=== PATIENT | female | born 1965 | race African-American/Black ===

== ENCOUNTER 2017-07-25 18:13 | Emergency (ER) | payer MEDICARE, OTHER ==
[~2017-07-25] VITALS: Ht 165.1 cm; Wt 90.0 kg
[~2017-07-25 18:13] MED LIST: AMOX1TAB PO; CETI10CA PO; CLIN-72 PO; ELIM TOP; NPH10OT LEFT EAR; ONDA4TAB8 PO
[2017-07-25 18:17] VITALS: Ht 165.1 cm; Wt 90.0 kg
[2017-07-25] MEDS ORDERED: HYDR-3011 PO (20:01)
[2017-07-25] MEDS ORDERED: CEPH-443 PO (20:01)
[2017-07-25] MEDS ORDERED: ELIM TOP (20:01)
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
== END 2017-07-25 20:15 | disposition home or self-care (01) ==
LOC: FTE 18:13
DX: S00.462A Insect bite (nonvenomous) of left ear, initial encounter (principal); L08.9 Local infection of the skin and subcutaneous tissue, unspecified; F17.210 Nicotine dependence, cigarettes, uncomplicated; W57.XXXA Bitten or stung by nonvenomous insect and other nonvenomous arthropods, initial encounter
CPT/HCPCS: 99284

== ENCOUNTER 2017-10-14 20:58 | Emergency (ER) | payer MEDICARE ==
[~2017-10-14] VITALS: Ht 167.6 cm; Wt 100.0 kg
[~2017-10-14 20:58] MED LIST changes: +CEPH-443 PO; +HYDR-3011 PO; +LIDOCAINE 100 MG SYRINGE ONE; +PROPOFOL 200 MG INJ ONE; +ROCURONIUM 50 MG INJ ONE
[2017-10-14] MEDS ORDERED: ONDANSETRON 4 MG INJ IV STA (21:04)
[2017-10-14] MEDS ORDERED: morphine 4 MG/ML VIAL IV STA (21:04)
[2017-10-14] MEDS ORDERED: SOD CHLORIDE 0.9% 1,000 ML IV STA (21:04)
[2017-10-14 21:08] VITALS: Ht 167.6 cm; Wt 100.0 kg
[2017-10-14 21:30] LABS: BASOPHIL # 0.1 10^3/ul (0.0-0.1); BASOPHILS % 0.4 % (0.0-2.0); EOSINOPHILS % 0.2 % (0.0-7.0); HEMATOCRIT 42.1 % (37.0-47.0); HEMOGLOBIN 14.1 g/dl (12.0-16.0); LYMPHOCYTES # 1.3 10^3/ul (0.8-2.9); LYMPHOCYTES % 10.6 % (15.0-51.0); MEAN CORPUSCULAR HEMOGLOBIN 29.7 pg (29.0-33.0); MEAN CORPUSCULAR HGB CONC 33.5 g/dl (32.0-37.0); MEAN CORPUSCULAR VOLUME 88.6 fl (82.0-101.0); MEAN PLATELET VOLUME 10.8 fl (7.4-10.4); MONOCYTE # 0.7 10^3/ul (0.3-0.9); MONOCYTES % 5.8 % (0.0-11.0); NEUTROPHIL # 10.2 10^3/ul (1.6-7.5); NEUTROPHILS % 82.6 % (39.0-77.0); PLATELET COUNT 275 10^3/UL (140-415); RED BLOOD COUNT 4.75 10^6/ul (4.20-5.40); RED CELL DISTRIBUTION WIDTH 13.2 % (11.5-14.5); WHITE BLOOD COUNT 12.3 10^3/ul (4.8-10.8)
[2017-10-14] MEDS ORDERED: PROPOFOL 100 ML IV ONE (21:30)
[2017-10-14] MEDS ORDERED: LACTATED RINGER'S 1,000 ML IV ONE (21:30)
[2017-10-14 21:36] LABS: AADO2 Arterial 86.7 mmHg (7.0-24.0); Allen Test ACCEPTAB; Arterial Base Excess 2.2 mmol/L (-3.0-3); Arterial COHb 0.9 % (0.0-3.0); Arterial Fraction of Oxyhgb 98.4 % (93.0-99.0); Arterial HCO3 27.3 mmol/L (22.0-26.0); Arterial MetHb 0.3 % (0.0-1.5); Arterial Total Hemglobin 14.9 g/dl (12.0-18.0); MODE VENT - AC
[2017-10-14] MEDS ORDERED: MIDAZOLAM (DRIP) 50 mg/50 mL 50 ML IV STA (21:41)
[2017-10-14] MEDS ORDERED: FENTAnyl 50 MCG/ML VIAL ONE (21:41)
[2017-10-14] MEDS ORDERED: ETOMIDATE 20 MG INJ IV STA (21:41)
[2017-10-14] MEDS ORDERED: ROCURONIUM 50 MG INJ IV STA (21:41)
[2017-10-14] MEDS ORDERED: MIDAZOLAM (DRIP) 50 mg/50 mL 50 ML IV ONE (21:42)
[2017-10-14 21:44] LABS: INR 0.95; PROTIME 12.8 Sec (11.9-14.9)
[2017-10-14 21:48] LABS: ALANINE AMINOTRANSFERASE 30 IU/L (13-69); ALBUMIN 4.1 g/dl (3.3-4.9); ALBUMIN/GLOBULIN RATIO 0.85; ALKALINE PHOSPHATASE 130 IU/L (42-121); ANION GAP 16 (8-16); ASPARTATE AMINO TRANSFERASE 38 IU/L (15-46); BILIRUBIN,INDIRECT 0.5 mg/dl (0-1.1); BILIRUBIN,TOTAL 0.5 mg/dl (0.2-1.3); BLOOD UREA NITROGEN 22 mg/dl (7-20); CALCIUM 10.2 mg/dl (8.4-10.2); CARBON DIOXIDE 27 mmol/L (21-31); CHLORIDE 103 mmol/L (97-110); CREATININE 1.14 mg/dl (0.44-1.00); GLUCOSE 122 mg/dl (70-220); POTASSIUM 3.8 mmol/L (3.5-5.1); SODIUM 142 mmol/L (135-144); TOTAL PROTEIN 8.9 g/dl (6.1-8.1)
--- NOTE | 2017-10-14 21:58 | RADRPT ---
PROCEDURE: XR Chest. CLINICAL INDICATION: Abdominal Pain TECHNIQUE: Single frontal view of the chest was obtained COMPARISON: None FINDINGS: Endotracheal tube tip overlying the lower thoracic trachea just above the bill. The heart is normal in size. The lungs are clear with no focal consolidation, pleural effusion, or pneumothorax. The osseous structures are unremarkable. There is a zipper overlying the distal esophagus. IMPRESSION: 1. Endotracheal tube tip overlying the lower thoracic trachea just above the bill. 2. Zipper overlying the distal esophagus, likely external to the patient. Correlation with physical exam is suggested. If there is clinical suspicion for swallowed foreign body, a lateral radiograph may be obtained. 3. No focal consolidations. RPTAT:AAJJ Physician Dalila Date Time Electronically viewed and signed by Physician Dalila on 10/14/2017 21:58 QL/
[2017-10-14 22:00] LABS: TROPONIN-I < 0.012 ng/ml (0.00-0.12)
[2017-10-14] MEDS ORDERED: FENTAnyl 50 MCG/ML VIAL IV ONE (22:00)
[2017-10-14] MEDS ORDERED: FENTAnyl (DRIP) 1000 mcg/100mL 100 ML IV SCH (22:00)
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
[2017-10-15 00:07] LABS: ADD UMIC NO; UR ASCORBIC ACID NEGATIVE (NEGATIVE); UR BILIRUBIN (Dip) NEGATIVE (NEGATIVE); UR BLOOD (Dip) NEGATIVE (NEGATIVE); UR CLARITY CLEAR (CLEAR); UR COLOR YELLOW (YELLOW); UR GLUCOSE (Dip) NEGATIVE (NEGATIVE); UR KETONES (Dip) NEGATIVE (NEGATIVE); UR LEUKOCYTE ESTERASE (Dip) NEGATIVE Leu/ul (NEGATIVE); UR NITRITE (Dip) NEGATIVE (NEGATIVE); UR SPECIFIC GRAVITY (Dip) 1.019 (1.003-1.030); UR TOTAL PROTEIN (Dip) NEGATIVE (NEGATIVE); UR UROBILINOGEN (Dip) 1+ mg/dL (NEGATIVE)
[2017-10-15 02:11] VITALS: BP 120/94; PULSE 92; RESP 16; TEMP 95.7
== END 2017-10-15 02:35 | disposition short-term general hospital (02) ==
LOC: E/R 20:58
DX: T20.39XA Burn of third degree of multiple sites of head, face, and neck, initial encounter (principal); F17.210 Nicotine dependence, cigarettes, uncomplicated; T68.XXXA Hypothermia, initial encounter; N28.9 Disorder of kidney and ureter, unspecified; R40.2122 Coma scale, eyes open, to pain, at arrival to emergency department; R40.2212 Coma scale, best verbal response, none, at arrival to emergency department; R40.2312 Coma scale, best motor response, none, at arrival to emergency department; R06.02 Shortness of breath; X08.8XXA Exposure to other specified smoke, fire and flames, initial encounter; W93.8XXA Exposure to other excessive cold of man-made origin, initial encounter; Y92.9 Unspecified place or not applicable
CPT/HCPCS: 31500; 36415; 36600; 71010; 80053; 81003; 82375; 82803; 83605; 83690; 84484; 85025; 85610; 85730; 94002; 94003; 94770; 96374; 99291; J2001; J2250; J3010; J7030; J7120; 93005

== ENCOUNTER 2018-08-26 15:31 | Emergency (ER) | END 2018-08-26 16:36 | disposition home or self-care (01) ==

== ENCOUNTER 2018-09-05 15:54 | Emergency (ER) | END 2018-09-05 20:00 | disposition left against medical advice (07) ==

== ENCOUNTER 2018-10-02 12:52 | Emergency (ER) | END 2018-10-02 14:45 | disposition home or self-care (01) ==

== ENCOUNTER 2019-06-23 11:55 | Emergency (ER) | payer MEDICARE, MEDICAID ==
[~2019-06-23] VITALS: Wt 90.9 kg
[~2019-06-23 11:55] MED LIST changes: -AMOX1TAB PO; -CEPH-443 PO; +CEPH500C PO; -CETI10CA PO; -CLIN-72 PO; +CLOT30CR24 TOP; +DOXY-214 PO; -ELIM TOP; -HYDR-3011 PO; +IVER3TAB2 PO; -LIDOCAINE 100 MG SYRINGE ONE; +MUPI22OI2 TOP; -NPH10OT LEFT EAR; -ONDA4TAB8 PO; +PRED20TA PO; -PROPOFOL 200 MG INJ ONE; -ROCURONIUM 50 MG INJ ONE; +SULF1TAB31 PO
[2019-06-23 12:27] VITALS: BP 165/94; PULSE 100; RESP 16
[2019-06-23] MEDS: ACETAMINOPHEN 325 MG TAB PO ONE ×2 (13:18→13:24)
== END 2019-06-23 15:35 | disposition home or self-care (01) ==
LOC: FTE 11:55
DX: S01.312A Laceration without foreign body of left ear, initial encounter (principal); L03.311 Cellulitis of abdominal wall; F17.210 Nicotine dependence, cigarettes, uncomplicated; X58.XXXA Exposure to other specified factors, initial encounter; Y92.9 Unspecified place or not applicable
CPT/HCPCS: 80053; 85025; 99283